=== PATIENT | male | born 2000 | race Hispanic/Latino ===

== ENCOUNTER 2023-10-31 22:17 | Emergency (ER) | payer MEDICAID ==
[~2023-10-31] VITALS: Ht 170.2 cm; Wt 111.1 kg
[2023-10-31 22:24] VITALS: PULSE 75; RESP 20
== END 2023-10-31 23:38 | disposition left against medical advice (07) ==
LOC: EDH 22:17
DX: R10.9 Unspecified abdominal pain (principal); Z53.21 Procedure and treatment not carried out due to patient leaving prior to being seen by health care provider
CPT/HCPCS: 99281